=== PATIENT | female | born 1975 | race Caucasian/White ===

== ENCOUNTER 2017-08-15 17:07 | Emergency (ER) | payer OTHER ==
[~2017-08-15] VITALS: Ht 167.6 cm; Wt 117.9 kg
[2017-08-15] MEDS ORDERED: NEURONTIN300 MG (18:17)
== END 2017-08-15 20:36 | disposition home or self-care (01) ==
LOC: ER 17:07
DX: M54.2 Cervicalgia (principal)

== ENCOUNTER → 2018-05-09 | Emergency (ER) | payer OTHER ==
[~2018-05-09] VITALS: Ht 167.6 cm; Wt 106.6 kg
[~2018-05-09] MED LIST: AMOX-CLAV 875-1 EACH PO; INTESTINEX680 M1 PO; MEDROLPACK PO; NEURONTIN300 MG; ZYRTEC10 M3 PO
== END | disposition home or self-care (01) ==
LOC: ER 08:31
DX: L27.1 Localized skin eruption due to drugs and medicaments taken internally (principal); T36.8X5A Adverse effect of other systemic antibiotics, initial encounter

== ENCOUNTER 2018-05-23 19:33 | Emergency (ER) | payer OTHER ==
[~2018-05-23] VITALS: Ht 167.6 cm; Wt 114.8 kg
[2018-05-23] MEDS ORDERED: COZAAR25 MG PO (19:52)
== END 2018-05-24 02:31 | disposition home or self-care (01) ==
LOC: ER 19:33 → CPU-OBS 19:37 → ER 05-24 02:31
DX: R07.89 Other chest pain (principal); I16.0 Hypertensive urgency; I10 Essential (primary) hypertension
CPT/HCPCS: G0378; G0379; 93005

== ENCOUNTER → 2018-05-27 | Emergency (ER) | payer OTHER ==
[~2018-05-27] VITALS: Ht 167.6 cm; Wt 114.8 kg
[~2018-05-27] MED LIST changes: +COZAAR25 MG PO
== END | disposition home or self-care (01) ==
LOC: ER 21:34 → CPU-OBS 21:58
DX: R07.89 Other chest pain (principal); F41.8 Other specified anxiety disorders
CPT/HCPCS: G0378; G0379; 93005

== ENCOUNTER 2020-03-22 21:14 | Emergency (ER) | payer OTHER ==
[~2020-03-22] VITALS: Ht 167.6 cm; Wt 77.1 kg
[2020-03-22] MEDS ORDERED: NORVASC5 MG (21:48)
[2020-03-22] MEDS ORDERED: ORPHENADRINE C100 MG PO (23:39)
[2020-03-22] MEDS ORDERED: ACETAMINOPHEN500 M2 PO (23:39)
== END 2020-03-23 01:12 | disposition home or self-care (01) ==
LOC: ER 21:14
DX: M54.16 Radiculopathy, lumbar region (principal); M54.5 Low back pain

== ENCOUNTER 2021-07-09 19:56 | Emergency (ER) | payer OTHER ==
[~2021-07-09] VITALS: Ht 167.6 cm; Wt 131.5 kg
[~2021-07-09 19:56] MED LIST changes: +ACETAMINOPHEN500 M2 PO; +NORVASC5 MG; +ORPHENADRINE C100 MG PO
== END 2021-07-09 23:59 | disposition home or self-care (01) ==
LOC: ER 19:56
DX: R00.0 Tachycardia, unspecified (principal); F41.8 Other specified anxiety disorders; I10 Essential (primary) hypertension

== ENCOUNTER 2021-09-15 07:31 | Emergency (ER) | payer OTHER ==
[~2021-09-15] VITALS: Ht 167.6 cm; Wt 131.5 kg
== END 2021-09-15 17:25 | disposition home or self-care (01) ==
LOC: ER 07:31
DX: R10.2 Pelvic and perineal pain (principal); Z86.79 Personal history of other diseases of the circulatory system

== ENCOUNTER 2022-08-30 00:07 | Emergency (ER) | payer OTHER ==
[~2022-08-30] VITALS: Ht 106.7 cm; Wt 135.2 kg
== END 2022-08-30 03:50 ==
LOC: ER 00:07
DX: R00.2 Palpitations (principal)

== ENCOUNTER 2022-10-29 22:44 | Emergency (ER) | payer OTHER ==
[~2022-10-29] VITALS: Ht 167.6 cm; Wt 132.9 kg
[2022-10-30] MEDS ORDERED: DOLOGESIC 500-1 EACH PO (06:45)
[2022-10-30] MEDS ORDERED: CEPHALEXIN500 MG PO ×2 (06:46→06:48)
== END 2022-10-30 06:53 ==
LOC: ER 22:44
DX: R10.2 Pelvic and perineal pain (principal); Z88.6 Allergy status to analgesic agent; Z88.8 Allergy status to other drugs, medicaments and biological substances

== ENCOUNTER 2023-04-10 11:06 | Emergency (ER) | payer OTHER ==
[~2023-04-10] VITALS: Ht 167.6 cm; Wt 135.2 kg
[~2023-04-10 11:06] MED LIST changes: +CEPHALEXIN500 MG PO; +DOLOGESIC 500-1 EACH PO
[2023-04-10 16:00] LABS: HEMATOCRIT 40.6 % (36.0-45.00); HEMOGLOBIN 13.2 g/dL (12.0-15.00); MEAN CELL VOLUME 83.5 fL (80.00-100.00); MEAN CORPUSCULAR HEMOGLOBIN 27.1 pg (27.00-32.0); MEAN CORPUSCULAR HGB CONC 32.4 g/dl (32.0-36.0); PLATELET COUNT 321 K/uL (150-450); RED BLOOD COUNT 4.86 M/uL (4.00-6.00); RED CELL DISTRIBUTION WIDTH 13.6 % (11.5-14.5)
[2023-04-10 16:54] LABS: CREATININE SERUM 0.94 mg/dL (0.55-1.02); GFR 63.83; POTASSIUM 3.86 mEq/L (3.5-5.1)
[2023-04-10] MEDS ORDERED: MACROBID 100 M100 MG PO (17:45)
[2023-04-10] MEDS ORDERED: PYRIDIUM100 M1 PO (17:45)
== END 2023-04-10 17:54 | disposition home or self-care (01) ==
LOC: ER 11:07
PROVIDERS: Nurse Practitioner Family
DX: N39.0 Urinary tract infection, site not specified (principal); I10 Essential (primary) hypertension; Z88.6 Allergy status to analgesic agent; Z88.8 Allergy status to other drugs, medicaments and biological substances
CPT/HCPCS: 36415; 96365; 99284; J0696; J2405; J3490; J7042

== ENCOUNTER 2023-07-02 11:53 | Emergency (ER) | payer OTHER ==
[~2023-07-02] VITALS: Ht 167.6 cm; Wt 133.8 kg
[~2023-07-02 11:53] MED LIST changes: +MACROBID 100 M100 MG PO; +PYRIDIUM100 M1 PO
[2023-07-02 16:43] LABS: HEMATOCRIT 39.9 % (36.0-45.00); HEMOGLOBIN 13.5 g/dL (12.0-15.00); MEAN CELL VOLUME 81.7 fL (80.00-100.00); MEAN CORPUSCULAR HEMOGLOBIN 27.8 pg (27.00-32.0); PLATELET COUNT 326 K/uL (150-450); RED BLOOD COUNT 4.88 M/uL (4.00-6.00)
[2023-07-02 17:10] LABS: ALBUMIN 3.6 gm/dL (3.4-5.0); BILIRUBIN TOTAL 0.7 mg/dL (0.3-1.2); CALCIUM 9.1 mg/dL (8.5-10.1); CREATININE SERUM 0.88 mg/dL (0.55-1.02); GFR 68.58; GLOBULINA 4.4 G/DL (2.4-3.5); POTASSIUM 3.63 mEq/L (3.5-5.1)
[2023-07-02 17:17] LABS: PH,URINE 5.5 (5.0-8.0); URINE APPEARANCE Clear; URINE BILIRRUBIN Negative (NEGATIVE); URINE BLOOD Moderate; URINE COLOR Yellow; URINE GLUCOSE Negative (NEGATIVE); URINE LEUKOCYTE Trace; URINE NITRATE Negative; URINE PROTEIN Negative (NEGATIVE)
[2023-07-02 17:21] LABS: URINE BACTERIA 894.5 uL (0.0-1933); URINE EPITHELIAL CELLS 41.8 uL (0.0-38.8); URINE RBC 32.6 uL (0.0-20.8); URINE WBC 28.2 uL (0.0-23.2)
[2023-07-02] MEDS ORDERED: DOLOGEN CAPLET1 EACH PO (18:20)
[2023-07-02] MEDS ORDERED: CIPRO500 MG PO (18:20)
== END 2023-07-02 19:29 | disposition home or self-care (01) ==
LOC: ER 11:53
PROVIDERS: Nurse Practitioner Family
DX: N39.0 Urinary tract infection, site not specified (principal); R10.2 Pelvic and perineal pain; R10.9 Unspecified abdominal pain; I10 Essential (primary) hypertension; Z88.1 Allergy status to other antibiotic agents; Z88.6 Allergy status to analgesic agent